=== PATIENT | female | born 1985 | race Caucasian/White ===

== ENCOUNTER → 2019-12-21 15:53 | Outpatient (BNVA) | payer OTHER, SELFPAY | PROVIDERS: Visit Provider Physician Assistant | DX: K52.9 Noninfective gastroenteritis and colitis, unspecified (principal) | CPT/HCPCS: 99202 ==

== ENCOUNTER 2020-01-18 18:08 | Outpatient (REF) | payer OTHER, SELFPAY ==
--- NOTE | 2020-01-18 | MR_ITS ---
EXAMINATION: MR BRAIN WITHOUT AND WITH CONTRAST CLINICAL INFORMATION: Encephalopathy. COMPARISON: None. TECHNIQUE: Multiplanar, multisequence imaging of the brain was performed before and after the intravenous administration of 8 mL of Gadavist. Slightly limited study with motion artifacts. FINDINGS: No diffusion abnormalities are identified to suggest an acute or subacute infarct. The ventricles are normal in size. No mass effect or midline shift is seen. No brain parenchymal signal abnormality is noted. No extra-axial fluid collections are seen. The brainstem and cerebellum are normal. On postcontrast imaging, there is no abnormal parenchymal or leptomeningeal enhancement. The gradient refocused acquisition demonstrates no pathologic magnetic susceptibility artifact to indicate underlying acute or chronic blood products. The craniovertebral junction, marrow signal, and midline structures are normal. The major intracranial flow voids at the level of the ch[place] of [place] are preserved. The dural venous sinus flow voids are maintained. The mastoid air cells and paranasal sinuses are well aerated. MR/MR head/brain wo/w con IMPRESSION: No acute intracranial process. No abnormal enhancement. Normal slightly limited MRI of the brain with motion artifacts.
== END 2020-01-18 18:09 | disposition home or self-care (01) ==
LOC: HO.MRI 18:08
PROVIDERS: Visit Provider Psychiatry & Neurology Neurology
DX: G93.40 Encephalopathy, unspecified (principal)
CPT/HCPCS: 70553; A9585

== ENCOUNTER 2023-05-20 15:28 | Outpatient (REF) | payer OTHER, SELFPAY ==
[2023-05-20 16:08] LABS: MANUAL DIFF FLAG NO
[2023-05-20 16:22] LABS: Basophils Percent Auto 0.4 % (0-2); Eosinophils Absolute Auto 0.1 X10*3/uL (0.0-0.4); Eosinophils Percent Auto 1.1 % (0-4); Hematocrit 42.3 % (37.0-47.0); Hemoglobin 13.9 g/dl (12.0-16.0); Imm Gran Abs Auto 0.03 X10*3/uL (0.00-0.03); Imm Gran Pct Auto 0.4 % (0.0-0.4); Lymphocytes Percent Auto 41.7 % (20-40); Mean Corpuscular HGB Conc 32.9 g/dl (31.0-35.0); Mean Corpuscular Hemoglobin 29.1 pg (27.0-33.0); Mean Corpuscular Volume 88.7 fL (80.0-98.0); Mean Platelet Volume 9.8 fL (9.4-12.3); Monocytes Absolute Auto 0.5 X10*3/uL (0.1-1.2); Monocytes Percent Auto 6.3 % (2-11); Neutrophils Absolute Auto 3.6 x10*3/uL (2.0-8.3); Neutrophils Percent Auto 50.1 % (45-73); Platelet Count 310 X10*3/uL (160-400); Red Blood Count 4.77 X10*6/uL (4.20-5.50); Red Cell Distribution Width 12.2 % (11.0-16.0); White Blood Count 7.2 X10*3/uL (4.8-10.8)
[2023-05-20 17:52] LABS: Alanine Aminotransferase 47 U/L (0-31); Albumin Level 4.2 g/dL (3.5-5.0); Alkaline Phosphatase 74 U/L (39-117); Anion Gap 14 (12-20); Aspartate Amino Transferase 48 U/L (5-31); Bilirubin Direct 0.1 mg/dL (0.0-0.5); Bilirubin Total 0.3 mg/dL (0.0-1.0); Blood Urea Nitrogen 12 mg/dL (9-16); Calcium 10.2 mg/dL (8.4-10.2); Carbon Dioxide 28 mmol/L (22-29); Chloride 103 mmol/L (96-108); Estimated Glomerular Filt Rate 48; Glucose Random 93 mg/dL (60-115); Potassium 4.1 mmol/L (3.3-5.1); Sodium 141 mmol/L (135-145); TSH reflex Free T4 3.58 uIU/mL (0.32-4.0); Total Protein 8.8 g/dL (6.5-8.0)
[2023-05-20 18:46] LABS: Microalbum/Creatinine Ratio Ur 5.2 ug/mg cr (<30)
== END 2023-05-20 15:29 | disposition home or self-care (01) ==
LOC: HO.HHCL 15:28
PROVIDERS: Visit Provider Nurse Practitioner Primary Care
DX: R60.9 Edema, unspecified (principal); E07.9 Disorder of thyroid, unspecified
CPT/HCPCS: 36415; 80048; 80076; 82043; 82570; 84443; 85025

== ENCOUNTER 2024-06-10 22:40 | Emergency (ER) | payer OTHER, SELFPAY ==
[2024-06-10 22:49] VITALS: BP 112/63; PULSE 67; RESP 18; TEMP 36.1; O2SAT 97; BMI 35.5
[2024-06-10 23:11] LABS: MANUAL DIFF FLAG NO
[2024-06-10 23:12] LABS: Basophils Percent Auto 0.3 % (0-2); Eosinophils Percent Auto 0.3 % (0-4); Hemoglobin 12.5 g/dl (12.0-16.0); Imm Gran Abs Auto 0.01 X10*3/uL (0.00-0.03); Imm Gran Pct Auto 0.2 % (0.0-0.4); Lymphocytes Absolute Auto 2.8 X10*3/uL (1.2-4.9); Lymphocytes Percent Auto 43.2 % (20-40); Mean Corpuscular HGB Conc 33.8 g/dl (31.0-35.0); Mean Corpuscular Hemoglobin 28.7 pg (27.0-33.0); Mean Corpuscular Volume 84.9 fL (80.0-98.0); Monocytes Absolute Auto 0.3 X10*3/uL (0.1-1.2); Monocytes Percent Auto 5.2 % (2-11); Neutrophils Absolute Auto 3.3 x10*3/uL (2.0-8.3); Neutrophils Percent Auto 50.8 % (45-73); Platelet Count 253 X10*3/uL (160-400); Red Blood Count 4.36 X10*6/uL (4.20-5.50); Red Cell Distribution Width 13.2 % (11.0-16.0); White Blood Count 6.5 X10*3/uL (4.8-10.8)
[2024-06-10 23:26] LABS: Alanine Aminotransferase 19 U/L (0-31); Alkaline Phosphatase 65 U/L (39-117); Anion Gap 15 (12-20); Aspartate Amino Transferase 23 U/L (5-31); Bilirubin Total 0.6 mg/dL (0.0-1.0); Blood Urea Nitrogen 12 mg/dL (9-16); Calcium 9.2 mg/dL (8.4-10.2); Carbon Dioxide 18 mmol/L (22-29); Chloride 110 mmol/L (96-108); Creatinine Clr Calc Pharmacy 105.5; Estimated Glomerular Filt Rate > 60; Glucose Random 106 mg/dL (60-115); Potassium 3.5 mmol/L (3.3-5.1); Sodium 139 mmol/L (135-145); Total Protein 7.9 g/dL (6.5-8.0)
[2024-06-10 23:28] LABS: Appearance Urine Clear; Color Urine Yellow; Glucose Urine UA Negative (Negative); Leukocyte Esterase Urine Negative (Negative); Nitrite Urine Negative (Negative); PH 5.5 (5.0-9.0); Specific Gravity - Urine <= 1.005 (1.005-1.025); Urine Blood Negative (Negative); Urine Ketones Negative (Negative); Urine Protein Negative (Neg-Trace)
[2024-06-11] VITALS (10 sets, daily range): BP systolic 92–115; BP diastolic 45–71; PULSE 53–64; RESP 14–18; TEMP 36.2–36.9; O2SAT 96–99
--- OUTSIDE RECORDS SUMMARY | 2024-06-11 00:35 | XMS_ITS | Encounter Summary ---
Author Organization [employer] Address [address] [place] [address] [address] [address] Care Team Providers Care Wedding Cake Designer Name Role Phone Temo Martell Primary Care Provider Unavail able Temo Martell Primary Care Provider Unavail able Deirdre Mei MD Primary Care Pro vider Beckie Gonzalez NP Primary Care Provider [phone] Encounter Details Date Type Department Care Team (Late st Contact Info) Description 01/01/2022 Abstract [facility] MEDICINE [address] [place] [address] Provider, MD Wilner Social History Tobacco Use Types Packs/Day Years Used Date Smoking Tobacco: Never Assessed Comments Unknown Sex and Gender Information Value Date Recorded Sex Assigned at Female 12/09/2021 10:36 AM EDT Legal Sex Female 10:36 AM EDT Gender Identity Female 12/09/2021 10:36 AM EDT Sexual Orientation Bisexual 12/09/2021 10 :36 AM EDT documented as of this encounter Plan of Treatment Not on file documented as of this encounter Visit Diagnoses Not on filedocumented in this encounter Care Teams Wedding Cake Designer Relationship Specialty Start Date End Date Temo Martell AGNP PCP - General Family Medicine 11/14/21 03/06/22 Temo Martell AGNP PCP - General Family Medicine 03/07/22 10/20/22 Deirdre Mei MD [address] [place] [address] PCP - General Internal Medicine 10/21/22 02/22/24 Beckie Gonzalez NP [address] [place] [id number] PCP - General Family Medicine 02/23/24 documented as of this encounter
--- OUTSIDE RECORDS SUMMARY | 2024-06-11 00:35 | XMS_ITS | Clinical Summary ---
Author Organization [employer] Address [address] [place] [address] [address] [place] [address] Care Team Providers Care Ict Account Manager Name Role Phone Beckie Gonzalez SRINI Primary Care Provider [phone] Allergies Active Allergy Reactions Criticality Noted Date Comments Penicillins 05/05/2019 Medications amphetamine-dextro amphetamine (Adderall) 20 MG tablet take 1 tablet by oral route once daily Active amphetamine-dextro amphetamine XR (Adderall XR) 30 MG 24 hr capsule take 1 capsule by oral route every day in the morning Active topiramate 50 MG tablet Take 1 tablet by mouth every 12 (twelve) hours. Active clonazePAM (KlonoPIN) 1 MG tablet Take 1 mg by mouth if needed in the morning, at noon, and at bedtime. 2 Active cloNIDine (Catapres) 0.1 MG tablet Take 0.1 mg by mouth. 2 Active naloxone (Narcan) 4 mg/0.1 mL nasal sprayIndications:S ubstance abuse (CMS/HCC) Administer 1 spray (4 mg) into affected nostril(s) if needed for opioid reversal. 2 each 1 3 Active levothyroxine (Synthroid, Levoxyl) 25 MCG tabletIndications: Other specified hypothyroidism Take 1 tablet (25 mcg) by mouth before breakfast. 30 tablet 3 Active oxybutynin (Ditropan) 5 MG tablet TAKE 1 TABLET BY MOUTH TWICE A DAY 60 tablet 1 4 Active gabapentin (Neurontin) 300 mg split tablet Take 600 mg by mouth 4 times daily. Active methadone (Dolophine) 0.1 mg/mL solution 40 mg. 150 mg am and 50 mg pm 3 Active docusate sodium (Colace) 100 MG capsule Take 1 capsule (100 mg) by mouth 2 times daily. 180 capsule 4 Active lidocaine (Lidoderm) 5 % patchIndications:B ilateral sciatica Apply 1 patch topically Once per day. Remove & discard patch within 12 hours or as directed by MD. 30 patch 2 4 Active cyclobenzaprine (Flexeril) 10 MG tabletIndications: Chronic midline low back pain with sciatica, sciatica laterality unspecified Take 1 tablet as needed up to TID for muscle spasm/pain 90 tablet 1 4 Active Active Problems Problem Noted Date Diagnosed Date Health care maintenance 05/30/2023 Opioid dependence, uncomplicated 05/29/2023 Mood disorder 05/29/2023 Seizure disorder 05/29/2023 Severe obesity 05/29/2023 Chronic midline low back pain with sciatica 04/2022 Disorder of thyroid gland 01/06/2022 Mixed anxiety and depressive disorder 01/06/2022 Recurrent cold sores 01/06/2022 Recurrent urinary tract infection 01/06/2022 Substance abuse 01/06/2022 History of methicillin resistant Staph aureus Immunizations Name Administration Dates Next Due DT (pediatric) 08/04/1996,04/20/1991 Hep B, Adolescent or Pediatric 06/21/2001,2000,04/17/1999 Hep B, adult 12/18/2020 Influenza injectable quadriv alent preservative free 11/08/2021,01/10/2021,02/07/2019 Influenza, IIV3, injectable 10/10/2016 MMR 04/20/1991 Meningococcal MCV4P [id number]-135 03/05/2005 Meningococcal MPSV4 07/17/1999 OPV, Trivalent 04/20/1991 Pfizer Covid-19 Vaccine 12+ 07/27/2020, Tdap 03/05/2005 Social History Tobacco Use Types Packs/Day Years Used Date Smoking Tobacco: Some Days Cigarettes Smokeless Tobacco: Never Tobacco Cessation:Ready to Q uit: Not Asked; Counseling Given: Not Answered Comments Unknown Sex and Gender Information Value Date Recorded Sex Assigned at Female 12/09/2021 10:36 AM EDT Legal Sex Female 10:36 AM EDT Gender Identity Female 12/09/2021 10:36 AM EDT Sexual Orientation Bisexual 12/09/2021 10 :36 AM EDT Last Filed Vital Signs Vital Sign Reading Time Taken Comments Blood Pressure 131/75 05/20/2023 2:27 PM EDT Pulse 108 05/20/2023 2:27 PM EDT Temperature 37.2 ??C (98.9 ??F) 05/20/2023 2:27 PM ED T Respiratory Rate 20 05/20/2023 2:27 PM EDT Oxygen Saturation 98% 05/20/2023 2:27 PM EDT Inhaled Oxygen Concentration - - Weight 129 kg (285 lb 6.4 oz) 05/20/2023 2:27 PM EDT Height 167.6 cm (5' 6 ) 05/20/2023 2:27 PM EDT Body Mass Index 46.06 05/20/2023 2:27 PM EDT Plan of Treatment Health Maintenance Due Date Last Done Comments Depression Screening 1986 SDOH Screening 1986 IPV Vaccines (2 of 3 - 4-dose series) 05/18/1991 04/20/1991 Alcohol/Substance Use Screening 1998 Family Planning (PISQ) 2001 Hepatitis C Screening 2004 Pneumococcal Vaccine: Pediatrics (0 to 5 Years) and At-Risk Patients (6 to 49) Years) (1 of 2 - PCV) 2005 DTaP/Tdap/Td Vaccines (2 - Td or Tdap) 03/05/2015 03/05/2005 COVID-19 Vaccine (3 - season) 2023 07/27/2020, 07/05/2020 Influenza Vaccine (#1) 2023 , 01/10/2021, 02/07/2019, Additional history exists Tobacco Screening 05/19/2024 05/20/2023 Lipid Panel 10/01/2025 10/01/2020 Cervical Cancer Screening 12/26/2027 HPV/Cotest 12/26/2027 12/25/2022 Pap Smear 12/26/2027 12/25/2022 Zoster Vaccines (1 of 2) 2036 RSV Patients and Patients Aged 60 years or older (1 - 1-dose 75+ series) 2061 Meningococcal Vaccine Completed 03/05/2005, HIV Screening Completed 10/01/2020 Hepatitis B Vaccines Completed 12/18/2020, 06/21/2001, 06/19/2000, Additional history exists HIB Vaccines Aged Out No longer eligi ble based on patient's age to complete this topic HPV Vaccines Aged Out No longer eligi ble based on patient's age to complete this topic Hepatitis A Vaccines Aged Out No long er eligible based on patient's age to complete this topic RSV under 20 months Aged Out No longe r eligible based on patient's age to complete this topic Rotavirus Vaccines Aged Out No longer eligible based on patient's age to complete this topic Procedures Procedure Name Priority Date/Time Associated Diagnosis Comments PAP/HPV Routine 12/25/2022 HIV 1/2 ANTIGEN/ANTIBODY, FOURTH GENERATION W/RFL Routine 10/01/2020 4:39 PM EDT LIPID PANEL, STANDARD Routine 10/01/2020 4:39 PM EDT from Last 3 Months or Most Recently Relevant to Health Maintenance Results * PAP/HPV (12/25/2022) Pap Negative for intraephithelial lesion or malignancy Negative for intraephithelial lesion or malignancy, Epithelial cell abnormality HPV Not Detected Undetected, Indeterminate, Quantitative, Not Detected Historical Provider HEALTH MAINTENANCE Final Result * HIV 1/2 ANTIGEN/ANTIBODY,FOURTH GENERATION W/RFL (10/01/2020 4:39 PM EDT) HIV-1/2 ANTIGEN AND ANTIBODIES, 4TH GENERATION W/ REFLEX NON-REACT LIA NON-REACT LIA [facility] Comment: HIV-1 antigen and HIV-1/HIV-2 antibodies were not detected. There is no laboratory evidence of HIV infection. ?? PLEASE NOTE: This information has been disclosed to you from records whose confidentiality may be protected by state law. ??If your state requires such protection, then the state law prohibits you from making any further disclosure of the information without the specific written consent of the person to whom it pertains, or as otherwise permitted by law. A general authorization for the release of medical or other information is NOT sufficient for this purpose. ? For additional information please refer to http://[employer].Bitly/faq/WYY876 (This link is being provided for informational/ educational purposes only.) ? The performance of this assay has not been clinically validated in patients less than 2 years old. ?? 10/01/2020 4:39 PM EDT us Catrachita Monge MD LAB BLOOD ORDERABLES Final Re sult [facility] [address] * (ABNORMAL) LIPID PANEL, STANDARD (10/01/2020 4:39 PM EDT) Chol/HDLC Ratio 3.6 <5.0 (calc) [facility] Cholesterol, Total 141 <200 mg/dL [facility] HDL Cholesterol 39(L) > OR = 50 mg/dL [facility] LDL Cholesterol 80 mg/dL (calc) [facility] Comment: Reference range: <100 ?? Desirable range <100 mg/dL for primary prevention; ?? <70 mg/dL for patients with CHD or diabetic patients ?? with > or = 2 CHD risk factors. ?? LDL-C is now calculated using the Liz ?? calculation, which is a validated novel method providing ?? better accuracy than the Friedewald equation in the ?? estimation of LDL-C. ?? Talha SOTELO et al. JAMEEL. 2013;310(19): 5856-3014 ?? (http://education.LawKick/faq/XAQ460) Non-HDL Cholesterol 102 <130 mg/dL (calc) [facility] Comment: For patients with diabetes plus 1 major ASCVD risk ?? factor, treating to a non-HDL-C goal of <100 mg/dL ?? (LDL-C of <70 mg/dL) is considered a therapeutic ?? option. Triglycerides 120 <150 mg/dL [facility] 10/01/2020 4:39 PM EDT us Catrachita Monge MD LAB BLOOD ORDERABLES Final Re sult [facility] [address] from Last 3 Months or Most Recently Relevant to Health Maintenance Insurance [facility] CARE < 65 [place]IVA [id number] * Guarantor: Mimi Carcamo Account Type Relation to Patient Date of Phone Billing Address Dental Self Care Teams Ict Account Manager Relationship Specialty Start Date End Date Beckie Gonzalez NP [address] [place] [address] PCP - General Family Medicine 02/23/24
--- OUTSIDE RECORDS SUMMARY | 2024-06-11 00:35 | XMS_ITS | Encounter Summary ---
Author Organization [employer] Address [address] [place] [address] [address] [address] Care Team Providers Care Cable Worker Helper Name Role Phone Deirdre Mei MD Primary Care Pro vider Beckie Gonzalez NP Primary Care Provider [phone] Reason for Visit * Reason Comments Med Refill Encounter Details Date Type Department Care Team (Late st Contact Info) Description 06/29/2023 Refill [facility] MEDICINE [address] [place], [place] [phone] Deirdre Mei MD [address] [place], [place] [phone] Bilateral sciatica Social History Tobacco Use Types Packs/Day Years Used Date Smoking Tobacco: Some Days Cigarettes Smokeless Tobacco: Never Comments Unknown Sex and Gender Information Value Date Recorded Sex Assigned at Female 12/09/2021 10:36 AM EDT Legal Sex Female 10:36 AM EDT Gender Identity Female 12/09/2021 10:36 AM EDT Sexual Orientation Bisexual 12/09/2021 10 :36 AM EDT documented as of this encounter Plan of Treatment Not on file documented as of this encounter Visit Diagnoses Diagnosis Bilateral sciatica Sciatica documented in this encounter Care Teams Cable Worker Helper Relationship Specialty Start Date End Date Deirdre Mei MD [address] [place], [place] [phone] PCP - General Internal Medicine 10/21/22 02/22/24 Beckie Gonzalez NP [address] [place], [place] [phone] PCP - General Family Medicine 02/23/24 documented as of this encounter
--- OUTSIDE RECORDS SUMMARY | 2024-06-11 00:35 | XMS_ITS | Encounter Summary ---
Author Organization [employer] Address [address] [facility] [address] [place] [address] Care Team Providers Care Culvert Installer Name Role Phone Temo Martell Primary Care Provider Unavail able Deirdre Mei MD Primary Care Pro vider Beckie Gonzalez NP Primary Care Provider [phone] Reason for Visit * Reason Onset Date Comments Hospital Follow-up 10/10/2022 Encounter Details Date Type Department Care Team (Late st Contact Info) Description 10/10/2022 Telephone [facility] MEDICINE [address] [place] [address] Temo Martell AGNP Hospital Follow-up Social History Tobacco Use Types Packs/Day Years Used Date Smoking Tobacco: Some Days Cigarettes Smokeless Tobacco: Never Comments Yes Sex and Gender Information Value Date Recorded Sex Assigned at Female 12/09/2021 10:36 AM EDT Legal Sex Female 10:36 AM EDT Gender Identity Female 12/09/2021 10:36 AM EDT Sexual Orientation Bisexual 12/09/2021 10 :36 AM EDT documented as of this encounter Miscellaneous Notes * Telephone Encounter - Zainab Sr - 10/10/2022 4:05 PM EDT Tc from [facility] calling to inform about a HDF appt. Pt was admitted at [facility] on 10/03/22 and discharged on 10/07/22. Pt was induced and delivered her baby. documented in this encounter Plan of Treatment Not on file documented as of this encounter Visit Diagnoses Not on filedocumented in this encounter Care Teams Culvert Installer Relationship Specialty Start Date End Date Temo Martell AGNP PCP - General Family Medicine 03/07/22 10/20/22 Deirdre Mei MD [address] [place] [address] PCP - General Internal Medicine 10/21/22 02/22/24 Beckie Gonzalez NP [address] [place] [address] PCP - General Family Medicine 02/23/24 documented as of this encounter
--- OUTSIDE RECORDS SUMMARY | 2024-06-11 00:35 | XMS_ITS | Encounter Summary ---
Author Organization [employer] Address [address] [place] [address] 7[place] [address] Care Team Providers Care Sales Engagement Executive Name Role Phone Deirdre Mei MD Primary Care Pro vider Beckie Gonzalez NP Primary Care Provider [phone] Reason for Visit * Reason Onset Date Comments Error 05/01/2023 Encounter Details Date Type Department Care Team (Late st Contact Info) Description 05/01/2023 Telephone [facility] MEDICINE [address] [place] [address] [phone] Deirdre Mei MD [address] [place] [phone] Error Social History Tobacco Use Types Packs/Day Years [...] on filedocumented in this encounter Care Teams Sales Engagement Executive Relationship Specialty Start Date End Date Deirdre Mei MD [address] [place] [address] [phone] PCP - General Internal Medicine 10/21/22 02/22/24 Beckie Gonzalez NP [address] [place] [phone] PCP - General Family Medicine 02/23/24 documented as of this encounter
--- NOTE | 2024-06-11 02:35 | ED_ITS ---
HPI - Female Genitourinary General Chief complaint: Urogenital-Female Stated complaint: back pain, pain urinating Time Seen by Provider: 06/11/24 02:22 Source: patient Mode of arrival: ambulatory Limitations: no limitations History of Present Illness ED Provider: HPI Narrative: Patient's history of substance abuse IVDA heroin chronic interstitial cystitis chronic pain constipation comes here with dysuria frequency feeling and suprapubic discomfort which seems to be chronic , asking for detox on arrival ambulatory currently taking amoxicillin for strep in urine which was cultured 4 days ago afebrile on arrival no chills no cough no nausea or vomiting Related Data Home Medications ?Medication ?Instructions ?Recorded ?Confirmed topiramate 50 mg tablet (Topamax) 50 mg PO BID 12/21/19 06/11/24 amoxicillin 875 mg tablet 875 mg PO BID 06/11/24 06/11/24 clonazepam 1 mg disintegrating 1 mg PO TID 06/11/24 06/11/24 tablet clonidine HCl 0.1 mg tablet 0.1 mg PO BEDTIME 06/11/24 06/11/24 dextroamphetamine-amphetamine 20 1 tab PO DAILY@1200 06/11/24 06/12/24 mg tablet hydroxyzine HCl 50 mg tablet 50 mg PO BEDTIME 06/11/24 06/12/24 melatonin 3 mg tablet 3 mg PO BEDTIME 06/11/24 06/11/24 dextroamphetamine-amphetamine ER 1 cap PO DAILY 06/12/24 06/12/24 30 mg 24hr capsule,extend release fluoxetine 20 mg capsule 20 mg PO DAILY 06/12/24 06/12/24 gabapentin 600 mg tablet 600 mg PO QID 06/12/24 06/12/24 hydroxyzine HCl 50 mg tablet 50 mg PO BEDTIME PRN Sleep 06/12/24 06/12/24 Allergies Allergy/AdvReac Type Severity Reaction Status Date / Time Penicillins [PENICILLINS] Allergy Unknown UNKNOWN Verified 06/10/24 22:53 vancomycin [VANCOMYCIN] Allergy Unknown UNKNOWN Verified 06/10/24 22:53 Review of Systems 2 Review of Systems: Yes all other systems are reviewed and are negative PMFSH Past Medical History Medical History Depression Substance use Anxiety Interstitial cystitis Seizure disorder Chronic diarrhea Social History Social History Household Members Other:: living with a friend Alcohol intake: former Smoked in Last 30 Days: No Use of substances other than those prescribed or required for medical reasons: Yes Substance Use Type: Opiates Advance Directives: No Advance Directives Information Provided: No Do you have a plan to hurt others: No Plan Patient : No Current occupational status: disabled Physical Exam 2 Vital Signs: Vital Signs: Last Vital Signs Temp 98.4 F 06/12/24 07:52 Pulse 65 06/12/24 07:52 Resp 16 06/12/24 07:52 BP 106/51 L 06/12/24 07:52 Pulse Ox 98 06/12/24 07:52 O2 Del Method Room Air 06/12/24 07:52 BMI result Body Mass Index 35.5 Appearance: Alert. Oriented X3. No acute distress. Eyes: PERRLA, No Nystagmus ENT: Pharynx normal. Oral Mucosa moist Neck: Normal inspection. Neck supple. CVS: Normal heart rate and rhythm. Pulses normal. Respiratory: No respiratory distress. Equal air entry bilateral, no wheezing/rales/rhonchi Abdomen: Soft and nontender. Bowel sounds are present, no mass palpable, no CVA tenderness Skin: Skin warm and dry. Normal skin color. Normal skin turgor. Extremities: No lower extremity edema. No calf tenderness IVDA track cortez++ back: No midline tenderness no lumbar tenderness no CVA tenderness Neuro: Oriented X 3. No motor deficit. No sensory deficit.No cerebellar signs , cranial nerves II-XII intact Course Course Course Narrative: 06/12 949-patient was seen by our recovery team. She [facility] Medications Administered Generic Name Dose Route Start Last Admin Trade Name José Manuelq PRN Reason Stop Dose Admin Amoxicillin 500 mg 06/11/24 23:00 06/11/24 23:23 Amoxicillin 500 Mg Capsule PO 500 mg TID ILANA Administration Clonazepam 1 mg 06/11/24 22:45 06/11/24 23:06 Clonazepam 1 Mg Tablet PO 1 mg TID ILANA Administration Clonidine HCl 0.1 mg 06/11/24 22:45 06/11/24 23:04 Clonidine Hcl 0.1 Mg Tablet PO 0.1 mg BEDTIME ILANA Administration Protocol Gabapentin 800 mg 06/11/24 22:45 06/11/24 23:03 Gabapentin 400 Mg Capsule PO 800 mg TID ILANA Administration Hydroxyzine HCl 50 mg 06/12/24 21:00 06/11/24 23:09 Hydroxyzine Hcl 50 Mg Tablet PO 50 mg BEDTIME MRX1 PRN Administration Sleep Melatonin 3 mg 06/11/24 22:45 06/11/24 23:04 Melatonin 3 Mg Tablet PO 3 mg BEDTIME ILANA Administration Topiramate 50 mg 06/11/24 22:45 06/11/24 23:04 Topiramate 25 Mg Tablet PO 50 mg BID ILANA Administration Trazodone HCl 200 mg 06/11/24 22:45 06/11/24 23:06 Trazodone Hcl 100 Mg Tablet PO 200 mg BEDTIME ILANA Administration Discontinued Medications Generic Name Dose Route Start Last Admin Trade Name José Manuelq PRN Reason Stop Dose Admin Clonidine HCl 0.1 mg 06/11/24 09:03 06/11/24 09:29 Clonidine Hcl 0.1 Mg Tablet PO 06/11/24 09:04 0.1 mg ONCE ONE Administration Protocol Medical Decision Making Medical Decision Making MDM Narrative: Patient's polysubstance abuse with chronic pain syndrome abusing heroin cocaine methadone asking for detox. Will consult care team for detox placement Lab Data MDM Lab Attestation statement: I reviewed the patient's lab results. 06/10/24 23:07 06/10/24 23:07 Labs: Lab Results 06/10/24 06/10/24 Range/Units 23:07 23:22 WBC 6.5 (4.8-10.8) X10*3/uL RBC 4.36 (4.20-5.50) X10*6/uL Hgb 12.5 (12.0-16.0) g/dl Hct 37.0 (37.0-47.0) % MCV 84.9 (80.0-98.0) fL MCH 28.7 (27.0-33.0) pg MCHC 33.8 (31.0-35.0) g/dl RDW 13.2 (11.0-16.0) % Plt Count 253 (160-400) X10*3/uL MPV 10.0 (9.4-12.3) fL Immature Gran % (Auto) 0.2 (0.0-0.4) % Neut % (Auto) 50.8 (45-73) % Lymph % (Auto) 43.2 H (20-40) % [place] % (Auto) 5.2 (2-11) % Eos % (Auto) 0.3 (0-4) % Baso % (Auto) 0.3 (0-2) % Lymph # (Auto) 2.8 (1.2-4.9) X10*3/uL [place] # (Auto) 0.3 (0.1-1.2) X10*3/uL Eos # (Auto) 0.0 (0.0-0.4) X10*3/uL Baso # (Auto) 0.0 (0.0-0.2) X10*3/uL Abs Immat Gran (auto) 0.01 (0.00-0.03) X10*3/uL Absolute Neuts (auto) 3.3 (2.0-8.3) x10*3/uL Absolute Nucleated RBC 0.000 (0.0-0.012) X10*3/uL Nucleated RBC % (auto) 0.0 (0.0-0.2) /100WBC Sodium 139 (135-145) mmol/L Potassium 3.5 (3.3-5.1) mmol/L Chloride 110 H (96-108) mmol/L Carbon Dioxide 18 L (22-29) mmol/L Anion Gap 15 (12-20) BUN 12 (9-16) mg/dL Creatinine 0.87 (0.5-1.4) mg/dL Estim Creat Clear Calc 105.5 Estimated GFR > 60 Random Glucose 106 (60-115) mg/dL Calcium 9.2 D (8.4-10.2) mg/dL Total Bilirubin 0.6 (0.0-1.0) mg/dL AST 23 (5-31) U/L ALT 19 (0-31) U/L Alkaline Phosphatase 65 (39-117) U/L Total Protein 7.9 (6.5-8.0) g/dL Albumin 4.0 (3.5-5.0) g/dL Urine Color Yellow Urine Appearance Clear Urine pH 5.5 (5.0-9.0) Ur Specific [place] <= 1.005 (1.005-1.025) Urine Protein Negative (Neg-Trace) mg/dL Urine Glucose (UA) Negative (Negative) mg/dL Urine Ketones Negative (Negative) mg/dL Urine Blood Negative (Negative) Urine Nitrite Negative (Negative) Ur Leukocyte Esterase Negative (Negative) Urine Opiates Screen Not Detected (Not Detect) Ur Buprenorphine Scrn Not Detected (Not Detect) ng/mL Ur Oxycodone Screen Not Detected (Not Detect) ng/mL Urine Methadone Screen Positive H (Not Detect) ng/mL Urine Fentanyl Screen POSITIVE H (Not Detect) Ur Barbiturates Screen Not Detected (Not Detect) Ur Phencyclidine Scrn Not Detected (Not Detect) Ur Amphetamines Screen Not Detected (Not Detect) U Benzodiazepines Scrn Not Detected (Not Detect) Urine Cocaine Screen POSITIVE H (Not Detect) U Marijuana (THC) Screen Not Detected (Not Detect) Discharge Plan Discharge Clinical Impression: Substance use Patient Disposition: Xfer Other Transfer Details: [facility] (detox) Instructions: Polysubstance Use Disorder (ED) Prescriptions: No Action clonidine HCl 0.1 mg tablet 0.1 mg PO BEDTIME hydroxyzine HCl 50 mg tablet 50 mg PO BEDTIME melatonin 3 mg tablet 3 mg PO BEDTIME amoxicillin 875 mg tablet 875 mg PO BID dextroamphetamine-amphetamine 20 mg tablet 1 tab PO DAILY@1200 clonazepam 1 mg tablet,disintegrating 1 mg PO TID gabapentin 600 mg tablet 600 mg PO QID hydroxyzine HCl 50 mg tablet 50 mg PO BEDTIME PRN (Reason: Sleep) dextroamphetamine-amphetamine 30 mg capsule,extended release 24hr 1 cap PO DAILY fluoxetine 20 mg capsule 20 mg PO DAILY topiramate [Topamax] 50 mg tablet 50 mg PO BID Interventions: LWBS Worksheet Last Done: 06/11/24 00:39 Print Language: South African
[2024-06-11 03:29] LABS: Amphetamine Screen Urine Not Detected (Not Detect); Barbiturates, Urine Not Detected (Not Detect); Benzodiazepines Screen Urine Not Detected (Not Detect); Buprenorphine Scr Not Detected (Not Detect); Cannabinoid Screen Urine Not Detected (Not Detect); Cocaine Screen Urine POSITIVE (Not Detect); Fentanyl, urine POSITIVE (Not Detect); Methadone Screen, Urine Positive (Not Detect); Opiate Screen Urine Not Detected (Not Detect); Oxycodone Screen Urine Not Detected (Not Detect); Phencyclidine Screen Urine Not Detected (Not Detect)
--- NOTE | 2024-06-11 08:45 | PC.NURSE ---
displayer merchandise at bedside.
[2024-06-11] MEDS: cloNIDine HCL 0.1 MG TABLET PO ×2 (09:29→23:04)
--- NOTE | 2024-06-11 12:39 | MHC.RECOVRN ---
Addendum entered by Linsey Lares RN 06/11/24 16:32: Per Dr Pichardo and patient okay to refer pt to [facility] at this time. If pt is accepted she is willing to go there, otherwise pt will be discharged. [facility] can be reached at [phone]. Addendum entered by Linsey Lares RN 06/11/24 15:52: Per staff at [facility]- there are no longer female beds available per staff at [facility] - pt's insurance is not accepted In addition, [facility] [place] was contacted and there are no female beds available there today. [facility] & [facility] were contacted as well but no one answered the phone. Will discuss this with patient and MD to figure out next steps. Addendum entered by Linsey Lares RN 06/11/24 12:40: per staff at [facility] pt's insurance is not accepted there. Original Note: Met with Mimi in [facility] to discuss ongoing opioid use disorder. Pt stated she has been using 1-2 bundles of heroin/fentanyl daily via the IV route for the past couple of months and on and off for 10+ years . She has been on methadone in the past but does not like being tied to one area and relapsed while trying to get off methadone by herself. Pt denies SI/HI (no ideation, plan, or intent) and denies AH/VH. She is requesting placement to detox. Does not want to go to [facility]. Referrals will be sent on her behalf. Referrals sent to the following facilities for review: - [facility] - [facility] - [facility] - [facility]
--- NOTE | 2024-06-11 20:23 | PC.NURSE ---
Patient ambulated to restroom and back to her bed with a steady gait noted. Patient requested stephanie dayna, provided and tolerated well. Patient offers no complaints at present. Currently resting on [facility] ongoing,
[2024-06-11] MEDS: Gabapentin 400 MG CAPSULE 800 MG PO (23:03)
[2024-06-11] MEDS: Topiramate 25 MG TABLET 50 MG PO (23:04)
[2024-06-11] MEDS: Melatonin 3 MG TABLET PO (23:04)
[2024-06-11] MEDS: clonazePAM 1 MG TABLET PO (23:06)
[2024-06-11] MEDS: traZODone HCL 100 MG TABLET 200 MG PO (23:06)
[2024-06-11] MEDS: hydrOXYzine HCL 50 MG TABLET PO (23:09)
[2024-06-11] MEDS: Amoxicillin 500 MG CAPSULE PO (23:23)
[2024-06-12 07:52] VITALS: BP 106/51; PULSE 65; RESP 16; TEMP 36.9; O2SAT 98
--- NOTE | 2024-06-12 08:23 | PC.NURSE ---
pt is currently asleep, respirations even and unlabored, pt offered breakfast but states not right now
--- NOTE | 2024-06-12 08:52 | MHC.RECOVRN ---
Addendum entered by Linsey Lares RN 06/12/24 09:53: Additional referral sent to [facility] Original Note: Referrals sent to the following facilities for review - [facility] - [place] [facility] - [facility] - [facility] - [facility] Will follow up shortly via phone call
--- NOTE | 2024-06-12 09:27 | PHA.MEDREC ---
Pharmacy Consult ? Medication Reconciliation RN has completed the medication reconciliation. Med rec updated per claim history and provider notified.
--- NOTE | 2024-06-12 09:53 | MHC.RECOVRN ---
Intake completed with [facility] [place]. Pt got accepted and is expected to be there by 12pm. She will be transported there via [employer] to be called by the [employer] profiler. ED Provider and RN aware.
[2024-06-12 10:19] VITALS: BP 132/65; PULSE 66; RESP 18; TEMP 37.1; O2SAT 97
[2024-06-12] MEDS: clonazePAM 1 MG TABLET PO (10:21)
[2024-06-12] MEDS: Gabapentin 400 MG CAPSULE 800 MG PO (10:21)
[2024-06-12] MEDS: Topiramate 25 MG TABLET 50 MG PO (10:22)
[2024-06-12] MEDS: FLUoxetine HCl 20 MG CAPSULE 40 MG PO (10:22)
[2024-06-12] MEDS: Amoxicillin 500 MG CAPSULE PO (10:22)
[2024-06-12 10:28] VITALS: BP 132/65; PULSE 66; RESP 18; TEMP 37.1; O2SAT 97
== END 2024-06-12 11:13 | disposition other institution (70) ==
PROVIDERS: Emergency Medicine; Emergency Provider Internal Medicine; PCP Student in an Organized Health Care Education/Training Program
DX: F19.10 Other psychoactive substance abuse, uncomplicated (principal); F32.9 Major depressive disorder, single episode, unspecified; F41.9 Anxiety disorder, unspecified; R10.30 Lower abdominal pain, unspecified; K52.9 Noninfective gastroenteritis and colitis, unspecified; Z79.899 Other long term (current) drug therapy
CPT/HCPCS: 36415; 80053; 80307; 81003; 85025; 99284; S9485